=== PATIENT | male | born 1945 | race Hispanic/Latino ===

== ENCOUNTER 2017-08-08 09:48 | Emergency (ER) | payer OTHER ==
[~2017-08-08 09:48] MED LIST: ALLO300T2 PO; AMIO200T2 PO; ATOR20TA65 PO; CARV3.12 PO; FURO40TA5 PO; LOSA50TA37 PO
[2017-08-08 12:04] LABS: APPEARANCE,URINE SL CLOUDY (CLEAR); BILIRUBIN,URINE NEGATIVE (NEGATIVE); COLOR,URINE YELLOW (YELLOW); GLUCOSE, URINE (UA) NEGATIVE (NEGATIVE); KETONES,URINE NEGATIVE (NEGATIVE); LEUKOCYTE ESTERASE ,URINE LARGE (NEGATIVE); NITRATE,URINE NEGATIVE (NEGATIVE); OCCULT BLOOD,URINE NEGATIVE (NEGATIVE); PROTEIN,URINE NEGATIVE (NEGATIVE); UROBILINOGEN,URINE 0.2 mg/dL (0.2-1.0)
[2017-08-08 12:12] LABS: SQUAMOUS EPITHELIAL CELL,UR Few /HPF (0-2)
[2017-08-08 12:13] LABS: BACTERIA,URINE Moderate /HPF (None Seen); HYALINE CASTS, URINE 0-1 /LPF (0-1 /LPF); RBC,URINE None Seen /HPF (0-1)
== END 2017-08-08 12:58 | disposition home or self-care (01) ==
LOC: EDH 09:48
DX: N43.3 Hydrocele, unspecified (principal); N39.0 Urinary tract infection, site not specified; I11.0 Hypertensive heart disease with heart failure; I50.9 Heart failure, unspecified; E78.5 Hyperlipidemia, unspecified; I25.10 Atherosclerotic heart disease of native coronary artery without angina pectoris; Z95.0 Presence of cardiac pacemaker; M19.90 Unspecified osteoarthritis, unspecified site; Z98.890 Other specified postprocedural states
CPT/HCPCS: 76870; 81001

== ENCOUNTER 2017-09-29 08:41 | Emergency (ER) | payer OTHER ==
[~2017-09-29 08:41] MED LIST changes: -AMIO200T2 PO; +AMIO200T5 PO
[2017-09-29 09:02] LABS: HEMATOCRIT 43.1 % (42-54); MEAN CORPUSCULAR HEMOGLOBIN 30.3 pg (27.0-33.0); MEAN CORPUSCULAR HGB CONC 33.6 g/dL (32.0-36.0); MEAN CORPUSCULAR VOLUME 90.3 fL (79-99); PLATELET COUNT (AUTO) 242 K/uL (130-400); RED BLOOD CELL COUNT(AUTO) 4.78 MIL/uL (4.50-6.20); RED CELL DISTRIBUTION WIDTH 15.3 % (11.0-15.5); WHITE BLOOD COUNT (AUTO) 12.4 K/uL (4.8-10.8)
[2017-09-29 09:10] LABS: CREATININE 1.7 mg/dL (0.5-1.5); POTASSIUM 4.9 mmol/L (3.5-5.1)
[2017-09-29 09:15] LABS: ALBUMIN 3.9 g/dL (3.5-5.0); TOTAL PROTEIN, SERUM 7.7 g/dL (6.0-8.3)
[2017-09-29] MEDS ORDERED: FUROSEMIDE 10 MG/ML 4ML VIAL ONE (09:30)
[2017-11-03] MEDS ORDERED: SPIR25TA6 PO (09:27)
[2017-11-03] MEDS ORDERED: TRAZ-185 PO (09:27)
== END 2017-09-29 11:45 | disposition home or self-care (01) ==
LOC: EDH 08:41
DX: I11.0 Hypertensive heart disease with heart failure (principal); I50.9 Heart failure, unspecified; R06.00 Dyspnea, unspecified; I25.10 Atherosclerotic heart disease of native coronary artery without angina pectoris; E78.5 Hyperlipidemia, unspecified; M19.90 Unspecified osteoarthritis, unspecified site; Z95.1 Presence of aortocoronary bypass graft
CPT/HCPCS: 36415; 71045; 80053; 84484; 85025; 93005; 96374; 99285; J1940

== ENCOUNTER 2017-09-30 02:01 | Observation (INO) | payer OTHER ==
[~2017-09-30] VITALS: Ht 165.1 cm; Wt 79.8 kg
[2017-09-30] MEDS ORDERED: IPRATROPIUM/ALBUTEROL SULFATE 3 ML SOLUTION IH ONE (02:41)
[2017-09-30 03:31] LABS: EOSINOPHILS % (AUTO) 3.6 % (0.0-8.0); HEMATOCRIT 40.6 % (42-54); LYMPHOCYTES % (AUTO) 9.1 % (21.0-51.0); MEAN CORPUSCULAR HEMOGLOBIN 30.3 pg (27.0-33.0); MEAN CORPUSCULAR HGB CONC 33.5 g/dL (32.0-36.0); MEAN CORPUSCULAR VOLUME 90.4 fL (79-99); MONOCYTES % (AUTO) 7.3 % (3.0-13.0); NUCLEATED RED BLOOD CELLS 0.1 % (0.0-0.19); PLATELET COUNT (AUTO) 225 K/uL (130-400); RED BLOOD CELL COUNT(AUTO) 4.49 MIL/uL (4.50-6.20); WHITE BLOOD COUNT (AUTO) 12.9 K/uL (4.8-10.8)
[2017-09-30 03:43] LABS: INR 0.98 (0.85-1.15); PARTIAL THROMBOPLASTIN TIME 25.6 SEC (26.3-35.5); PROTHROMBIN TIME 10.3 SEC (9.6-11.6)
[2017-09-30 03:49] LABS: POTASSIUM 4.8 mmol/L (3.5-5.1)
[2017-09-30 04:02] LABS: ALBUMIN 3.7 g/dL (3.5-5.0); BILIRUBIN,TOTAL 1.4 mg/dL (0.2-1.0); CREATINE KINASE MB 2.8 ng/mL (0.5-3.6); TOTAL PROTEIN, SERUM 7.3 g/dL (6.0-8.3)
[2017-09-30 04:31] LABS: B-TYPE NATRIURETIC PEPTIDE 1830 pg/mL (0-100)
[2017-09-30] MEDS ORDERED: ENOXAPARIN SODIUM 40 MG/0.4 ML SYRINGE SQ ONE (05:17)
[2017-09-30] MEDS ORDERED: FUROSEMIDE 10 MG/ML 2ML VIAL ONE ×2 (05:18→10:04)
[2017-09-30] MEDS ORDERED: POTASSIUM CHLORIDE 20MEQ/100ML 100 ML IV PRN (06:00)
[2017-09-30] MEDS ORDERED: DiphenhydrAMINE HCL 50 MG/ML VIAL IVP PRN (06:00)
[2017-09-30] MEDS ORDERED: GUAIFENESIN SUGAR-FREE 100 MG/5 ML UDCUP PO PRN (06:00)
[2017-09-30] MEDS ORDERED: LACTULOSE 20 GM/30 ML UDCUP PO PRN (06:00)
[2017-09-30] MEDS ORDERED: NITROGLYCERIN 0.4 MG SL TAB SL PRN (06:00)
[2017-09-30] MEDS ORDERED: GLUCAGON 1MG KIT 1 MG ML IM PRN (06:00)
[2017-09-30] MEDS ORDERED: GUAIFENESIN-DM 200/20 MG 10 ML PO PRN (06:00)
[2017-09-30] MEDS ORDERED: SODIUM CHLORIDE 0.9% 10 ML VIAL IVP SCH (06:00)
[2017-09-30] MEDS ORDERED: POTASSIUM CHLORIDE 10% ELIXIR 20 MEQ/15 ML UDCUP PO PRN (06:00)
[2017-09-30] MEDS ORDERED: LIDOCAINE HCL-MPF 1% 2ML VIAL IJ PRN (06:00)
[2017-09-30] MEDS ORDERED: ONDANSETRON HCL 4 MG/2 ML VIAL IVP PRN (06:00)
[2017-09-30] MEDS ORDERED: ACETAMINOPHEN 325 MG TAB PO PRN ×2 (06:00)
[2017-09-30] MEDS ORDERED: CLONIDINE HCL 0.1 MG TABLET PO PRN (06:00)
[2017-09-30] MEDS ORDERED: ZOLPIDEM TARTRATE 5 MG TAB PO PRN (06:00)
[2017-09-30] MEDS ORDERED: DEXTROSE 50%-WATER 50 ML DISP.SYRIN IV PRN (06:00)
[2017-09-30] MEDS ORDERED: DIPHENHYDRAMINE HCL 25 MG CAPSULE PO PRN (06:00)
[2017-09-30] MEDS ORDERED: POTASSIUM CHLORIDE 20 MEQ ERTAB PO PRN (06:00)
[2017-09-30] MEDS ORDERED: MAG HYDROX/AL HYDROX/SIMETH ES 30 ML SUSP UDCUP PO PRN (06:00)
[2017-09-30] MEDS: INSULIN R PO SS2 SQ SCH ×4 (07:30→21:00)
[2017-09-30] MEDS: ENOXAPARIN SODIUM 30 MG/0.3 ML SQ SCH (09:00)
[2017-09-30] MEDS: FUROSEMIDE 10 MG/ML 4ML VIAL IVP SCH (09:00)
[2017-09-30 10:40] LABS: CREATINE KINASE MB 2.1 ng/mL (0.5-3.6); CREATINE KINASE, TOTAL 41 U/L (21-232); MYOGLOBIN 56 ng/mL (10-92); TROPONIN I < 0.04 ng/mL (0.00-0.06)
[2017-09-30 15:14] VITALS: BP 105/46
[2017-09-30 19:39] LABS: CREATINE KINASE MB 1.3 ng/mL (0.5-3.6); CREATINE KINASE, TOTAL 29 U/L (21-232); MYOGLOBIN 57 ng/mL (10-92); TROPONIN I < 0.04 ng/mL (0.00-0.06)
[2017-09-30 19:56] VITALS: BP 95/52
[2017-09-30 23:45] VITALS: BP 100/67
[2017-10-01 03:29] VITALS: BP 97/68
[2017-10-01 05:04] LABS: BASOPHILS % (AUTO) 2.8 % (0.0-5.0); EOSINOPHILS % (AUTO) 5.1 % (0.0-8.0); LYMPHOCYTES % (AUTO) 11.2 % (21.0-51.0); MEAN CORPUSCULAR HEMOGLOBIN 31.9 pg (27.0-33.0); MEAN CORPUSCULAR HGB CONC 35.2 g/dL (32.0-36.0); MEAN CORPUSCULAR VOLUME 90.7 fL (79-99); NEUTROPHILS % (AUTO) 70.9 % (40.0-77.0); PLATELET COUNT (AUTO) 216 K/uL (130-400); RED BLOOD CELL COUNT(AUTO) 3.86 MIL/uL (4.50-6.20); RED CELL DISTRIBUTION WIDTH 15.5 % (11.0-15.5); WHITE BLOOD COUNT (AUTO) 9.2 K/uL (4.8-10.8)
[2017-10-01 05:16] LABS: ALBUMIN 3.2 g/dL (3.5-5.0); BILIRUBIN,TOTAL 1.1 mg/dL (0.2-1.0); CREATININE 1.9 mg/dL (0.5-1.5); POTASSIUM 3.8 mmol/L (3.5-5.1); TOTAL PROTEIN, SERUM 6.5 g/dL (6.0-8.3)
[2017-10-01 07:00] VITALS: BP 96/64
[2017-10-01] MEDS: INSULIN R PO SS2 SQ SCH ×2 (07:30→10:44)
[2017-10-01] MEDS: ENOXAPARIN SODIUM 30 MG/0.3 ML SQ SCH (08:29)
[2017-10-01] MEDS: FUROSEMIDE 10 MG/ML 4ML VIAL IVP SCH (08:29)
[2017-10-01 11:00] VITALS: BP 105/62
[2017-11-03] MEDS ORDERED: TRAZ-185 PO (09:27)
[2017-11-03] MEDS ORDERED: SPIR25TA6 PO (09:27)
== END 2017-10-01 14:01 | disposition home or self-care (01) ==
LOC: EDH 02:01 → EDHIP 04:56 → 2CH 15:16 → 2DH 17:33
PROVIDERS: ADMIT Family Medicine; ATTEND Family Medicine
DX: I11.0 Hypertensive heart disease with heart failure (principal); I50.9 Heart failure, unspecified; I25.10 Atherosclerotic heart disease of native coronary artery without angina pectoris; E78.5 Hyperlipidemia, unspecified; Z95.0 Presence of cardiac pacemaker
CPT/HCPCS: 36415 ×2; 71045; 78582; 80053 ×2; 82550 ×3; 82553 ×3; 82948 ×3; 83874 ×3; 83880; 84484 ×3; 85025 ×2; 85378; 85610; 85730; 87040 ×2; 93005; 94640; 96372; 96374; 99291; A9540; A9558; G0378 ×33; J1650 ×2; J1940 ×3

== ENCOUNTER 2017-10-19 16:58 | Emergency (ER) | payer OTHER ==
[2017-10-19 17:25] LABS: BASOPHILS % (AUTO) 1.1 % (0.0-5.0); EOSINOPHILS % (AUTO) 6.3 % (0.0-8.0); HEMATOCRIT 35.7 % (42-54); LYMPHOCYTES % (AUTO) 11.7 % (21.0-51.0); MEAN CORPUSCULAR HEMOGLOBIN 30.4 pg (27.0-33.0); MEAN CORPUSCULAR VOLUME 92.2 fL (79-99); MONOCYTES % (AUTO) 8.4 % (3.0-13.0); NEUTROPHILS % (AUTO) 72.5 % (40.0-77.0); PLATELET COUNT (AUTO) 220 K/uL (130-400); RED BLOOD CELL COUNT(AUTO) 3.88 MIL/uL (4.50-6.20); RED CELL DISTRIBUTION WIDTH 16.6 % (11.0-15.5); WHITE BLOOD COUNT (AUTO) 7.2 K/uL (4.8-10.8)
[2017-10-19 17:38] LABS: CREATININE 3.6 mg/dL (0.5-1.5); POTASSIUM 4.4 mmol/L (3.5-5.1)
[2017-10-19 17:39] LABS: INR 0.98 (0.85-1.15); PARTIAL THROMBOPLASTIN TIME 27.2 SEC (26.3-35.5); PROTHROMBIN TIME 10.3 SEC (9.6-11.6)
[2017-10-19 17:42] LABS: ALBUMIN 3.6 g/dL (3.5-5.0); BILIRUBIN,DIRECT 0.1 mg/dL (0.0-0.3); BILIRUBIN,TOTAL 0.8 mg/dL (0.2-1.0); TOTAL PROTEIN, SERUM 6.7 g/dL (6.0-8.3)
[2017-10-19 18:05] LABS: B-TYPE NATRIURETIC PEPTIDE 1280 pg/mL (0-100)
[2017-10-19 19:08] LABS: APPEARANCE,URINE Cloudy (CLEAR); BILIRUBIN,URINE Negative (NEGATIVE); COLOR,URINE Yellow (YELLOW); GLUCOSE, URINE (UA) Negative (NEGATIVE); KETONES,URINE Negative (NEGATIVE); LEUKOCYTE ESTERASE ,URINE Large (NEGATIVE); NITRATE,URINE Negative (NEGATIVE); OCCULT BLOOD,URINE Negative (NEGATIVE); PROTEIN,URINE Negative (NEGATIVE)
[2017-10-19 19:56] LABS: BACTERIA,URINE Moderate /HPF (None Seen); RBC,URINE None Seen /HPF (0-1); WBC,URINE 26-50 /HPF (0-1)
[2017-11-03] MEDS ORDERED: SPIR25TA6 PO (09:27)
[2017-11-03] MEDS ORDERED: TRAZ-185 PO (09:27)
== END 2017-10-19 19:48 | disposition home or self-care (01) ==
LOC: EDH 16:58
DX: R53.1 Weakness (principal); N39.0 Urinary tract infection, site not specified; M19.90 Unspecified osteoarthritis, unspecified site; I25.10 Atherosclerotic heart disease of native coronary artery without angina pectoris; I11.0 Hypertensive heart disease with heart failure; I50.9 Heart failure, unspecified; E78.5 Hyperlipidemia, unspecified; Z95.0 Presence of cardiac pacemaker; Z95.1 Presence of aortocoronary bypass graft; Z98.890 Other specified postprocedural states; Z87.891 Personal history of nicotine dependence
CPT/HCPCS: 36415; 71045; 74176; 80048; 80076; 81001; 82550; 83690; 83880; 84484; 85025; 85610; 85730; 93005

== ENCOUNTER 2017-11-03 05:45 | Inpatient (IN) | payer OTHER ==
[~2017-11-03] VITALS: Ht 162.6 cm; Wt 74.5 kg
[~2017-11-03 05:45] MED LIST changes: +AMIO200T2 PO; -AMIO200T5 PO
[2017-11-03] MEDS ORDERED: ASPIRIN 325 MG TABLET ONE (06:03)
[2017-11-03 06:04] LABS: BASOPHILS % (AUTO) 1.1 % (0.0-5.0); EOSINOPHILS % (AUTO) 2.8 % (0.0-8.0); HEMATOCRIT 35.3 % (42-54); LYMPHOCYTES % (AUTO) 9.1 % (21.0-51.0); MEAN CORPUSCULAR HGB CONC 33.8 g/dL (32.0-36.0); MEAN CORPUSCULAR VOLUME 91.7 fL (79-99); NUCLEATED RED BLOOD CELLS 0.1 % (0.0-0.19); PLATELET COUNT (AUTO) 197 K/uL (130-400); RED BLOOD CELL COUNT(AUTO) 3.85 MIL/uL (4.50-6.20); RED CELL DISTRIBUTION WIDTH 16.9 % (11.0-15.5); WHITE BLOOD COUNT (AUTO) 10.6 K/uL (4.8-10.8)
[2017-11-03 06:19] LABS: CREATININE 2.2 mg/dL (0.5-1.5); POTASSIUM 4.2 mmol/L (3.5-5.1)
[2017-11-03 06:24] LABS: ALBUMIN 3.9 g/dL (3.5-5.0); BILIRUBIN,TOTAL 1.4 mg/dL (0.2-1.0); INR 0.96 (0.85-1.15); PARTIAL THROMBOPLASTIN TIME 27.7 SEC (26.3-35.5); PROTHROMBIN TIME 10.1 SEC (9.6-11.6); TOTAL PROTEIN, SERUM 7.3 g/dL (6.0-8.3)
[2017-11-03 06:29] LABS: B-TYPE NATRIURETIC PEPTIDE 3170 pg/mL (0-100)
[2017-11-03] MEDS ORDERED: FUROSEMIDE 10 MG/ML 4ML VIAL ONE (06:43)
[2017-11-03] MEDS ORDERED: SPIR25TA4 PO (09:27)
[2017-11-03] MEDS ORDERED: TRAZ-144 PO (09:27)
[2017-11-03 09:49] VITALS: BP 119/65
[2017-11-03 11:00] VITALS: BP 109/62
[2017-11-03 13:14] LABS: CREATINE KINASE MB 1.6 ng/mL (0.5-3.6); CREATINE KINASE, TOTAL 33 U/L (21-232); MYOGLOBIN 67 ng/mL (10-92); TROPONIN I < 0.04 ng/mL (0.00-0.06)
[2017-11-03 16:00] VITALS: BP 109/62
[2017-11-03 18:15] LABS: CREATINE KINASE MB 1.2 ng/mL (0.5-3.6); CREATINE KINASE, TOTAL 34 U/L (21-232); MYOGLOBIN 73 ng/mL (10-92); TROPONIN I < 0.04 ng/mL (0.00-0.06)
[2017-11-03 19:38] VITALS: BP 90/62
[2017-11-03] MEDS: TRAZODONE HCL 50 MG TAB PO SCH (21:48)
[2017-11-03] MEDS: ALLOPURINOL 300 MG TABLET PO SCH (21:48)
[2017-11-03] MEDS: ATORVASTATIN CALCIUM 20 MG TABLET PO SCH (21:49)
[2017-11-04] VITALS: BP 100/57
[2017-11-04 04:27] VITALS: BP 107/59
[2017-11-04 07:00] VITALS: BP 118/66
[2017-11-04] MEDS: ALLOPURINOL 300 MG TABLET PO SCH ×2 (09:22→21:33)
[2017-11-04] MEDS: AMIODARONE HCL 200 MG TABLET PO SCH (09:23)
[2017-11-04] MEDS: FUROSEMIDE 40 MG TABLET PO SCH ×2 (09:23→17:44)
[2017-11-04] MEDS: SPIRONOLACTONE 25 MG TAB PO SCH (09:23)
[2017-11-04 11:00] VITALS: BP 91/52
[2017-11-04 16:00] VITALS: BP 107/57
[2017-11-04 20:18] VITALS: BP 108/61
[2017-11-04] MEDS: CARVEDILOL 3.125 MG TABLET PO SCH (21:00)
[2017-11-04] MEDS: ATORVASTATIN CALCIUM 20 MG TABLET PO SCH (21:33)
[2017-11-04] MEDS: TRAZODONE HCL 50 MG TAB PO SCH (21:33)
[2017-11-05] VITALS (7 sets, daily range): BP systolic 92–125; BP diastolic 58–79
[2017-11-05] MEDS: MILRINONE-D5W 20 MG/100 ML 100 ML IV SCH ×2 (02:04→10:51)
[2017-11-05 05:07] LABS: BASOPHILS % (AUTO) 1.2 % (0.0-5.0); EOSINOPHILS % (AUTO) 3.9 % (0.0-8.0); HEMATOCRIT 28.2 % (42-54); LYMPHOCYTES % (AUTO) 14.7 % (21.0-51.0); MEAN CORPUSCULAR HEMOGLOBIN 32.3 pg (27.0-33.0); MEAN CORPUSCULAR HGB CONC 35.2 g/dL (32.0-36.0); MEAN CORPUSCULAR VOLUME 91.7 fL (79-99); MONOCYTES % (AUTO) 9.3 % (3.0-13.0); NEUTROPHILS % (AUTO) 70.9 % (40.0-77.0); NUCLEATED RED BLOOD CELLS 0.1 % (0.0-0.19); PLATELET COUNT (AUTO) 162 K/uL (130-400); RED BLOOD CELL COUNT(AUTO) 3.08 MIL/uL (4.50-6.20); RED CELL DISTRIBUTION WIDTH 16.6 % (11.0-15.5); WHITE BLOOD COUNT (AUTO) 6.3 K/uL (4.8-10.8)
[2017-11-05 05:19] LABS: ALBUMIN 3.2 g/dL (3.5-5.0); BILIRUBIN,TOTAL 1.2 mg/dL (0.2-1.0); CREATININE 2.4 mg/dL (0.5-1.5); TOTAL PROTEIN, SERUM 6.3 g/dL (6.0-8.3)
[2017-11-05] MEDS: AMIODARONE HCL 200 MG TABLET PO SCH (09:00)
[2017-11-05] MEDS: FUROSEMIDE 40 MG TABLET PO SCH (09:00)
[2017-11-05] MEDS ORDERED: LISINOPRIL 5 MG TABLET PO SCH (09:00)
[2017-11-05] MEDS: SPIRONOLACTONE 25 MG TAB PO SCH (09:48)
[2017-11-05] MEDS: ALLOPURINOL 300 MG TABLET PO SCH ×2 (09:48→21:40)
[2017-11-05] MEDS: CARVEDILOL 3.125 MG TABLET PO SCH (09:49)
[2017-11-05] MEDS: TRAZODONE HCL 50 MG TAB PO SCH (21:40)
[2017-11-05] MEDS: CARVEDILOL 6.25 MG TABLET PO SCH (21:40)
[2017-11-05] MEDS: ATORVASTATIN CALCIUM 20 MG TABLET PO SCH (21:49)
[2017-11-06] MEDS: MILRINONE-D5W 20 MG/100 ML 100 ML IV SCH ×2 (00:01→11:29)
[2017-11-06 04:00] VITALS: BP 114/61
[2017-11-06 04:22] LABS: EOSINOPHILS % (AUTO) 5.8 % (0.0-8.0); HEMATOCRIT 28.5 % (42-54); LYMPHOCYTES % (AUTO) 13.6 % (21.0-51.0); MEAN CORPUSCULAR HEMOGLOBIN 31.1 pg (27.0-33.0); MEAN CORPUSCULAR HGB CONC 34.1 g/dL (32.0-36.0); MEAN CORPUSCULAR VOLUME 91.2 fL (79-99); MONOCYTES % (AUTO) 7.4 % (3.0-13.0); NEUTROPHILS % (AUTO) 72.2 % (40.0-77.0); NUCLEATED RED BLOOD CELLS 0.1 % (0.0-0.19); PLATELET COUNT (AUTO) 170 K/uL (130-400); RED BLOOD CELL COUNT(AUTO) 3.12 MIL/uL (4.50-6.20); RED CELL DISTRIBUTION WIDTH 17.2 % (11.0-15.5)
[2017-11-06 04:45] LABS: ALBUMIN 3.2 g/dL (3.5-5.0); CREATININE 2.4 mg/dL (0.5-1.5); POTASSIUM 4.3 mmol/L (3.5-5.1); TOTAL PROTEIN, SERUM 6.3 g/dL (6.0-8.3)
[2017-11-06 08:17] VITALS: BP 121/90
[2017-11-06] MEDS: CARVEDILOL 6.25 MG TABLET PO SCH ×2 (08:35→21:37)
[2017-11-06] MEDS: SPIRONOLACTONE 25 MG TAB PO SCH (08:35)
[2017-11-06] MEDS: ALLOPURINOL 300 MG TABLET PO SCH ×2 (08:35→21:37)
[2017-11-06] MEDS: AMIODARONE HCL 200 MG TABLET PO SCH (08:35)
[2017-11-06 12:00] VITALS: BP 91/61
[2017-11-06] MEDS: TRAMADOL HCL 50 MG TABLET PO PRN ×2 (13:27→22:33)
[2017-11-06] MEDS ORDERED: LACTULOSE 20 GM/30 ML UDCUP PO PRN (13:45)
[2017-11-06 16:00] VITALS: BP 111/58
[2017-11-06 19:57] VITALS: BP 120/44
[2017-11-06] MEDS: TRAZODONE HCL 50 MG TAB PO SCH ×2 (19:58→21:36)
[2017-11-06] MEDS: ATORVASTATIN CALCIUM 20 MG TABLET PO SCH (21:37)
[2017-11-06 23:15] VITALS: BP 117/49
[2017-11-07] MEDS: MILRINONE-D5W 20 MG/100 ML 100 ML IV SCH ×2 (00:21→11:15)
[2017-11-07 04:00] VITALS: BP 118/74
[2017-11-07 04:31] LABS: BASOPHILS % (AUTO) 0.9 % (0.0-5.0); EOSINOPHILS % (AUTO) 3.8 % (0.0-8.0); HEMATOCRIT 28.1 % (42-54); LYMPHOCYTES % (AUTO) 10.5 % (21.0-51.0); MEAN CORPUSCULAR HEMOGLOBIN 32.5 pg (27.0-33.0); MEAN CORPUSCULAR HGB CONC 35.4 g/dL (32.0-36.0); MEAN CORPUSCULAR VOLUME 91.7 fL (79-99); MONOCYTES % (AUTO) 6.2 % (3.0-13.0); NEUTROPHILS % (AUTO) 78.6 % (40.0-77.0); NUCLEATED RED BLOOD CELLS 0.1 % (0.0-0.19); PLATELET COUNT (AUTO) 196 K/uL (130-400); RED BLOOD CELL COUNT(AUTO) 3.06 MIL/uL (4.50-6.20); RED CELL DISTRIBUTION WIDTH 16.9 % (11.0-15.5); WHITE BLOOD COUNT (AUTO) 6.8 K/uL (4.8-10.8)
[2017-11-07 05:08] LABS: ALBUMIN 3.3 g/dL (3.5-5.0); BILIRUBIN,TOTAL 1.1 mg/dL (0.2-1.0); CREATININE 2.4 mg/dL (0.5-1.5); POTASSIUM 4.6 mmol/L (3.5-5.1); TOTAL PROTEIN, SERUM 6.4 g/dL (6.0-8.3)
[2017-11-07 07:00] VITALS: BP 106/44
[2017-11-07] MEDS: CARVEDILOL 6.25 MG TABLET PO SCH ×2 (09:44→21:15)
[2017-11-07] MEDS: ALLOPURINOL 300 MG TABLET PO SCH ×2 (09:44→21:15)
[2017-11-07] MEDS: SPIRONOLACTONE 25 MG TAB PO SCH (09:44)
[2017-11-07] MEDS: AMIODARONE HCL 200 MG TABLET PO SCH (09:44)
[2017-11-07] MEDS: TRAMADOL HCL 50 MG TABLET PO PRN (09:51)
[2017-11-07 11:00] VITALS: BP 109/55
[2017-11-07 12:46] VITALS: BP 90/61
[2017-11-07 20:00] VITALS: BP 111/54
[2017-11-07] MEDS: TRAZODONE HCL 50 MG TAB PO SCH ×2 (21:00→21:16)
[2017-11-07] MEDS: ATORVASTATIN CALCIUM 20 MG TABLET PO SCH (21:15)
[2017-11-07 23:53] VITALS: BP 98/62
[2017-11-08 03:44] VITALS: BP 132/99
[2017-11-08 07:00] VITALS: BP 97/67
[2017-11-08] MEDS: SPIRONOLACTONE 25 MG TAB PO SCH (07:44)
[2017-11-08] MEDS: AMIODARONE HCL 200 MG TABLET PO SCH ×3 (07:45→21:00)
[2017-11-08] MEDS: ALLOPURINOL 300 MG TABLET PO SCH ×2 (07:45→21:00)
[2017-11-08] MEDS: CARVEDILOL 6.25 MG TABLET PO SCH ×2 (07:45→21:00)
[2017-11-08] MEDS: TRAMADOL HCL 50 MG TABLET PO PRN (07:49)
[2017-11-08 11:00] VITALS: BP 90/62
[2017-11-08] MEDS ORDERED: SODIUM CHLORIDE 0.9% 1000ML 1,000 ML IV ONE (13:11)
[2017-11-08] MEDS: SODIUM CHLORIDE 0.9% 1000ML 1,000 ML IV SCH (13:24)
[2017-11-08 16:00] VITALS: BP 102/58
[2017-11-08 19:42] VITALS: BP 88/59
[2017-11-08] MEDS: ATORVASTATIN CALCIUM 20 MG TABLET PO SCH (21:00)
[2017-11-08] MEDS: TRAZODONE HCL 50 MG TAB PO SCH ×2 (21:00)
[2017-11-09 00:01] VITALS: BP 89/58
[2017-11-09 03:55] VITALS: BP 93/58
[2017-11-09 07:00] VITALS: BP 93/67
[2017-11-09 10:28] VITALS: BP 98/60
[2017-11-09] MEDS ORDERED: ONDANSETRON HCL 4 MG/2 ML VIAL ONE (10:32)
[2017-11-09] MEDS: SPIRONOLACTONE 25 MG TAB PO SCH (10:37)
[2017-11-09] MEDS: ALLOPURINOL 300 MG TABLET PO SCH (10:37)
[2017-11-09] MEDS: CARVEDILOL 6.25 MG TABLET PO SCH (10:38)
[2017-11-09] MEDS: AMIODARONE HCL 200 MG TABLET PO SCH ×2 (10:38→11:11)
[2017-11-09] MEDS: SODIUM CHLORIDE 0.9% 1000ML 1,000 ML IV SCH (10:39)
[2017-11-09 11:00] VITALS: BP 91/62
== END 2017-11-09 17:48 | disposition home or self-care (01) | DRG 308 ==
LOC: EDH 05:45 → EDHIP 08:20 → 2AH 09:19
PROVIDERS: ADMIT Family Medicine; ATTEND Family Medicine
DX: I47.2 Ventricular tachycardia (principal); I50.23 Acute on chronic systolic (congestive) heart failure; I97.89 Other postprocedural complications and disorders of the circulatory system, not elsewhere classified; I13.0 Hypertensive heart and chronic kidney disease with heart failure and stage 1 through stage 4 chronic kidney disease, or unspecified chronic kidney disease; I42.0 Dilated cardiomyopathy; N18.9 Chronic kidney disease, unspecified; E78.5 Hyperlipidemia, unspecified; Y83.1 Surgical operation with implant of artificial internal device as the cause of abnormal reaction of the patient, or of later complication, without mention of misadventure at the time of the procedure; E11.22 Type 2 diabetes mellitus with diabetic chronic kidney disease; I08.0 Rheumatic disorders of both mitral and aortic valves; I25.10 Atherosclerotic heart disease of native coronary artery without angina pectoris; I95.9 Hypotension, unspecified; Z91.19 Patient's noncompliance with other medical treatment and regimen; Z95.1 Presence of aortocoronary bypass graft; Z95.810 Presence of automatic (implantable) cardiac defibrillator
CPT/HCPCS: 36415; 71045; 80053; 82550; 82553; 83735; 83874; 83880; 84484; 85025; 85610; 85730; 93005; 93306; J1940; J2260; J2405; J7030